=== PATIENT | female | born 2000 | race Caucasian/White ===

== ENCOUNTER → 2021-03-26 13:50 | Outpatient (CLI) | payer OTHER, SELFPAY ==
--- NOTE | ~2021-03-26 | XR_ITS ---
XR foot RT min 3V DATE: 03/26/2021 14:18 INDICATION: Right toe pain TECHNIQUE: 4 views COMPARISON: None FINDINGS: No recent fracture or dislocation, periosteal reaction or bone destruction. Joint spaces ar e preserved. No erosive change. IMPRESSION: No significant abnormality Reviewed, dictated and finalized at location A. IMPRESSION: No significant abnormality
== END ==
PROVIDERS: PCP Internal Medicine; Visit Provider Registered Nurse
DX: M79.674 Pain in right toe(s) (principal)
CPT/HCPCS: 73630

== ENCOUNTER 2023-07-13 09:35 | Emergency (ER) | payer BC, SELFPAY ==
--- NOTE | 2023-07-13 09:50 | ED.URI ---
HPI - URI/Sore Throat General Chief Complaint: Upper Respiratory Infection Stated Complaint: sorethroat Time Seen by Provider: 07/13/23 09:50 Source: patient Mode of arrival: ambulatory Limitations: no limitations History of Present Illness HPI Narrative: Patient is a 23-year-old female who presents with fever, sore throat, body aches, chills that started this morning. Patient states last week she has had mild cold symptoms. Has taken DayQuil and NyQuil. History of type 1 diabetes. Related Data Home Medications Medication Instructions Recorded Confirmed blood-glucose sensor (Dexcom G6 07/13/23 07/13/23 Sensor device) blood-glucose transmitter (Dexcom 07/13/23 07/13/23 G6 Transmitter device) insulin pump cart,automated,BT 07/13/23 07/13/23 (Omnipod 5 G6 Pods (Gen 5) subcutaneous cartridge) norethindrone 1 mg-ethinyl tablet 07/13/23 estradiol 20 mcg (24)-iron 75 mg (4) tablet (Blisovi 24 Fe) Allergies Allergy/AdvReac Type Severity Reaction Status Date / Time No Known Allergies Allergy Verified 07/13/23 10:08 Review of Systems Review of Systems: All systems reviewed & are unremarkable except as noted in HPI and below Constitutional: Constitutional: Reports body ache(s), Reports chills, Denies fatigue, Reports fever(s), Denies headache(s), Denies malaise and Denies weakness Eyes: Eyes: Denies blurry vision, Denies itchy eyes and Denies loss of vision ENT: Denies otalgia, Denies headache(s), Denies nasal congestion, Denies sinus pain and Reports sore throat Cardiovascular: Cardiovascular: Denies chest pain, Denies irregular heart rhythm and Denies dyspnea Respiratory: Respiratory: Reports cough and Denies dyspnea Gastrointestinal: Gastrointestinal: Denies abdominal pain, Denies diarrhea, Denies nausea and Denies vomiting Musculoskeletal: Musculoskeletal: Denies back pain, Denies myalgias and Denies arthralgias Integumentary/Breasts: Skin/Breast: Denies pruritus and Denies rash Neurologic: Denies headache(s), Denies loss of vision and Denies weakness Psychiatric: Psychiatric: Reports no additional psychiatric complaints Endocrine: Endocrine: Denies fatigue Allergic/Immunologic: Allergic/Immunologic: Denies itchy eyes PMFSH Past Medical History Medical History Diabetes type 1 has insulin pump Encounter for screening examination for sexually transmitted disease Family History Family History Grandparent Breast cancer, Onset Age: 73 maternal grandmother Bladder cancer Lung cancer Mother Acute myocardial infarction Social History Social History Smoking status: Never smoker Second hand tobacco smoke exposure: No Alcohol intake: current Alcohol use details: ocassional 2-3 month Substance use: never Substance use type: does not use Lack of Transportation: No Lack of Food: Never True Current Housing: I Have Housing Concerned About Future Housing: No Difficulty Paying Gas/Electric Bills: No Difficulty Paying for Meds: No Currently Unemployed: No Education: Associate Degree Difficulty w/ Childcare or Family Care: No Living arrangements: other Additional living arrangements comments: boyfriend Occupation/Education: occupation Additional occupation/education comments: Nurse Gender identity (if verbalized by the patient): Female Sexual Orientation (if Verbalized by the Patient): Straight or Heterosexual Comments At time of signature, agree with nursing past medical, surgical, social and family history. There is no relevant family history pertinent to the presenting complaint. Exam Const: General: cooperative, healthy appearing, comfortable, no acute distress and well nourished Nutritional Appearance: well nourished Orientation/consciousness: patient oriented x3
[2023-07-13 09:56] VITALS: BP 134/76; PULSE 119; RESP 18; TEMP 37.3; O2SAT 100
== END 2023-07-13 10:47 | disposition home or self-care (01) ==
PROVIDERS: Emergency Provider Nurse Practitioner Family; PCP Internal Medicine
DX: J03.80 Acute tonsillitis due to other specified organisms (principal); B96.89 Other specified bacterial agents as the cause of diseases classified elsewhere; E10.9 Type 1 diabetes mellitus without complications; Z79.899 Other long term (current) drug therapy; Z79.4 Long term (current) use of insulin; Z20.822 Contact with and (suspected) exposure to COVID-19
CPT/HCPCS: 87081; 87426; 87804; 87880; 99213; G0463